=== PATIENT | male | born 1945 | race Hispanic/Latino ===

== ENCOUNTER 2017-06-08 09:42 | Outpatient (CLI) | payer MEDICARE ==
--- NOTE | 2017-06-08 13:11 | Magnetic Resonance Report ---
MRI of the brain with and without contrast. History: Lung cancer. Procedure: Routine brain protocol with and without intravenous contrast. Findings: The posterior fossa is normal. The ventricles are normal in size and contour. There are no masses or extra-axial collections. There is no restricted diffusion. After gadolinium administration, there is no evidence of abnormal enhancement. The pituitary gland is normal. There is evidence of chronic ethmoid and maxillary sinusitis. Impression: No evidence of metastatic disease or other significant intracranial findings. 2. Chronic sinusitis.
== END 2017-06-08 09:43 | disposition home or self-care (01) ==
LOC: SPVIMAG 09:42
PROVIDERS: ATTEND Internal Medicine Hematology
DX: C34.91 Malignant neoplasm of unspecified part of right bronchus or lung (principal)
CPT/HCPCS: 70553; A9577

== ENCOUNTER 2017-06-09 06:34 | Day surgery (SDC) | payer MEDICARE ==
--- NOTE | 2017-06-10 09:04 | PET Report ---
PET/CT:06/09/17 06:34:00 CLINICAL: Lung cancer staging. RADIOPHARMACEUTICAL: 14.84mCi F18-FDG. COMPARISON: None. TECHNIQUE- Following intravenous injection of F-18 FDG and an approximately 60 minute uptake period, CT and PET images from the mid skull to the upper thighs were acquired with the patient in the fasted state. No contrast was administered. The CT protocol used for this PET CT study is designed for attenuation correction and anatomic localization of PET abnormalities. This [employer] and field operator CT is not desired to produce and cannot replace, [id number]-art diagnostic CT scans with specific imaging protocols for different body parts and indications. Plasma glucose at the time of this test: 84g/dl. The standardized uptake values (SUV) are normalized to patient body weight and indicate the highest activity concentration (SUV max) in a given disease site. FINDINGS: Brain--Physiologic FDG uptake in the visualized regions of the brain. Neck--Physiologic FDG uptake . Chest--Physiologic FDG uptake in mediastinal blood pool and myocardium. Lungs--No abnormal uptake. No pulmonary nodule or mass. Pleura/pericardium--Pronounced FDG avid global thickening of the right pleura. It measures 1.9 cm maximum thickness in the right apex. The FDG uptake is greatest or inferior, medial and posterior with an SUV 11.3. Nodular thickening of the right major fissure with minimal FDG uptake. There is also a moderate size right pleural effusion which is partially loculated. Thoracic nodes--No abnormal uptake. No lymphadenopathy. Hepatobiliary--No abnormal uptake. Liver background SUV mean, as a reference for comparing FDG studies, is 4.0 . No liver mass. Spleen--No abnormal uptake. Pancreas--No abnormal uptake. Adrenal Glands--No abnormal uptake. Kidneys/Ureters/Bladder--No abnormal uptake. Abdominopelvic Nodes--No abnormal uptake. Bowel/Peritoneum/Mesentery--No abnormal uptake. Pelvic organs--No abnormal uptake. Bones/Soft Tissues--No abnormal uptake. IMPRESSION- 1. Pronounced FDG avid right pleural thickening with a moderate size right pleural effusion. The FDG uptake suggests that there has been a chemical pleurodesis procedure. Pleural neoplasm is a consideration if there has not been such a procedure. 2. No lung mass. 3. No evidence of manolo, hepatic or skeletal metastasis.
== END 2017-06-09 09:40 | disposition home or self-care (01) ==
LOC: CATHLABREC 06:34 → PET 06:34 → EDSTATUS 08:15 → CATHLABREC 09:40
PROVIDERS: ATTEND Internal Medicine Hematology
DX: C34.90 Malignant neoplasm of unspecified part of unspecified bronchus or lung (principal); J90 Pleural effusion, not elsewhere classified; Z53.8 Procedure and treatment not carried out for other reasons
CPT/HCPCS: 78815; 82962; A9552

== ENCOUNTER 2017-06-15 11:35 | Day surgery (SDC) | payer MEDICARE ==
[2017-06-15 12:52] LABS: INR 1.05 (0.87-1.13)
[2017-06-15 12:53] LABS: Partial Thromboplastin Time 36.3 Sec. (24.2-36.6)
[2017-06-15] MEDS ORDERED: NORCO 5/325 PO ONE (14:05)
--- NOTE | 2017-06-15 14:07 | History and Physical Report ---
History of Present Illness Date of examination: 06/15/17 Chief complaint: rt. chst pain History of present illness: recent Medications and Allergies Allergies Allergy/AdvReac Type Severity Reaction Status Date / Time No Known Allergies Allergy Verified 06/15/17 11:56 Home Medications Medication Instructions Recorded Confirmed Last Taken Type Aspirin EC [Aspirin Enteric Coated 81 mg PO DAILY 06/15/17 06/15/17 06/14/17 History TAB] Dexamethasone [Decadron] 4 mg PO BID 06/15/17 06/15/17 06/14/17 History Active Meds: Active Medications Acetaminophen/Hydrocodone Bitart (Effie 5/325) 1 each PO ONCE ONE Stop: 06/15/17 14:06 Exam Vital Signs Temp Pulse Resp BP Pulse Ox 97.9 F 95 H 16 128/71 96 06/15/17 11:45 06/15/17 11:45 06/15/17 11:45 06/15/17 11:45 06/15/17 11:45
--- NOTE | 2017-06-15 14:09 | Procedure Note ---
Date of procedure: 06/15/17 Pre-op diagnosis: rt. pleural effusion Post-op diagnosis: same Procedure: thoracentesis Findings: heme tinged fluid Anesthesia: local Surgeon: ROAYL COLEMAN Estimated blood loss: none Pathology: list (120cc to lab) Specimen disposition: to lab Condition: stable Disposition: observation
--- NOTE | 2017-06-15 14:17 | Ultrasound Report ---
Ultrasound-guided right thoracentesis: Imaging of the right chest posteriorly demonstrates a moderate collection of hypoechogenic fluid in the pleural space. The skin was marked, draped, and cleansed. 1% lidocaine used for local anesthesia. A 5 Malay Yueh catheter was placed through a skin gt into the pleural space. 120 cc was removed initially in 2 separate syringes for laboratory evaluation. A total of 1500 cc of heme tinged fluid was removed without apparent complication other than mild patient discomfort. Patient was sent to the [facility] for observation.
--- NOTE | 2017-06-15 14:50 | XRay Report ---
Expiration PA chest: Post right thoracentesis. Right chest pain. Long time smoker. Gas are I have no prior exam. The patient has a diffuse increase in pulmonary density with prominent interstitial pattern. No pneumothorax. Focal curvilinear area of increased density in the upper right chest as well as in the right midlung. Mild pleural blunting and increased markings at the right lung base with mild pleural thickening in the upper lateral right chest. The right hilum appears larger than the left with increase of hilar opacity. Recent PET scan with CT appears less ominous than the current exam. Impressions: 1. No complication of right thoracentesis with small residual. 2. Large right hilum with suspicion of subhilar infiltrate/ mass. 3. Nonspecific diffuse lung changes. Possibilities include perivascular edema as well as chronic lung disease.
[2017-06-15 15:28] VITALS: BP 108/78
== END 2017-06-15 11:36 | disposition home or self-care (01) ==
LOC: CATHLABREC 11:35 → EDSTATUS 12:00
PROVIDERS: ATTEND Internal Medicine Hematology
DX: J90 Pleural effusion, not elsewhere classified (principal)
CPT/HCPCS: 32555; 36415; 71010; 85610; 85730; 88112; 88305; 88341; 88342